=== PATIENT | male | born 1960 ===

== ENCOUNTER → 2023-04-30 13:31 | Outpatient (CLI) | payer OTHER, SELFPAY ==
[2023-04-30 20:31] LABS: Alanine Aminotransferase 33 IU/L (<50); Albumin 4.6 g/dL (3.5-5.0); Albumin Globulin Ratio 1.4 (1.0-2.8); Alkaline Phosphatase 73 U/L (38-126); Aspartate Aminotransferase 34 IU/L (17-59); BUN Creatinine Ratio 20.5 (6-22); Bilirubin Total 0.7 mg/dL (0.2-1.3); Blood Urea Nitrogen 18 mg/dL (9-20); Calcium 9.6 mg/dL (8.4-10.2); Carbon Dioxide 27 mmol/L (22-32); Chloride 98 mmol/L (98-107); Estimated Glomerular Filt Rate > 60 mL/min (>60); Globulin 3.3 g/dL (1.7-4.1); Glucose 85 mg/dL (80-110); HEMOLYSIS < 15 (0-50); Magnesium 2.2 mg/dL (1.6-2.3); Potassium 4.7 mmol/L (3.4-5.1); Sodium 136 mmol/L (137-145); Total Protein 7.9 g/dL (6.3-8.2); Uric Acid 5.9 mg/dL (3.5-8.5)
[2023-04-30 20:45] LABS: TSH w/ Reflex to FT4 1.59 uIU/mL (0.47-4.68)
[2023-04-30 21:06] LABS: Erythrocyte Sedimentation Rate 1 MM/HR (0-15)
== END ==
PROVIDERS: PCP Physician Assistant; Visit Provider Physician Assistant
DX: R25.2 Cramp and spasm (principal); M25.562 Pain in left knee
CPT/HCPCS: 80053; 83735; 84443; 84550; 85651

== ENCOUNTER → 2024-12-04 14:01 | Outpatient (CLI) | payer MEDICARE, OTHER, SELFPAY | LOC: LAB 14:01 | PROVIDERS: PCP Physician Assistant; Visit Provider Physician Assistant | DX: Z78.9 Other specified health status (principal) | CPT/HCPCS: 86735; 86762; 86765 ==